=== PATIENT | female | born 1950 | race Caucasian/White ===

== ENCOUNTER 2019-02-27 08:13 | Emergency (ER) | payer MEDICARE, BC ==
[2019-02-27 08:13] VITALS: O2SAT 97
[2019-02-27 08:26] VITALS: PULSE 67; RESP 18; TEMP 98.7
[2019-02-27] MEDS ORDERED: KETOROLAC TROMETHAMINE 30 MG/ML SOL IV ONE (08:50)
[2019-02-27] MEDS ORDERED: SODIUM CHLORIDE 0.9% FLUSH 10 ML SOL IV PRN (08:52)
[2019-02-27] MEDS ORDERED: KETOROLAC TROMETHAMINE 30 MG/ML SOL ONE (08:52)
[2019-02-27 09:27] LABS: BASOPHILS % (AUTO) 1 % (0-3); EOSINOPHILS % (AUTO) 3 % (0-9); HEMATOCRIT 42 % (35-47); HEMOGLOBIN 13.4 gm/dl (12.0-15.5); LYMPHOCYTES % (AUTO) 32.1 % (10-50); MEAN CORPUSCULAR HEMOGLOBIN 28.6 pg (27.0-32.0); MEAN CORPUSCULAR HGB CONC 31.9 gm/dl (32.0-36.0); MEAN CORPUSCULAR VOLUME 90 fL (81-99); MONOCYTES % (AUTO) 7.2 % (0-12); NEUTROPHILS % (AUTO) 56.1 % (37-80)
[2019-02-27 09:40] LABS: ALBUMIN 3.5 gm/dl (3.4-5.0); BILIRUBIN,TOTAL 0.5 mg/dl (0.2-1.0); CALCIUM 8.5 mg/dl (8.5-10.1); CARBON DIOXIDE 28.6 mEq/L (21-32); CREATININE 0.81 mg/dl (0.60-1.00); POTASSIUM 4.3 mMol/L (3.5-5.1)
[2019-02-27 11:49] VITALS: BP 126/77
== END 2019-02-27 11:45 | disposition home or self-care (01) | DRG 195 ==
LOC: ED 08:13
DX: R09.1 Pleurisy (principal); E11.9 Type 2 diabetes mellitus without complications; N20.0 Calculus of kidney; M41.9 Scoliosis, unspecified; J98.4 Other disorders of lung; K80.80 Other cholelithiasis without obstruction
CPT/HCPCS: 36415; 71250; 74176; 80053; 85025; 96374; 99284; J1885